=== PATIENT | female | born 1970 | race Caucasian/White ===

== ENCOUNTER 2023-10-23 08:35 | Outpatient (CLI) | payer OTHER ==
[2023-10-23 09:29] LABS: PH,URINE 5.5 (5.0-8.0); URINE APPEARANCE Clear; URINE BILIRRUBIN Negative (NEGATIVE); URINE BLOOD Negative; URINE COLOR Dark Yellow; URINE GLUCOSE Negative (NEGATIVE); URINE KETONE Trace (NEGATIVE); URINE LEUKOCYTE Negative; URINE NITRATE Negative; URINE PROTEIN Negative (NEGATIVE)
[2023-10-23 09:34] LABS: URINE BACTERIA 13.8 uL (0.0-1933); URINE EPITHELIAL CELLS 12.9 uL (0.0-38.8); URINE RBC 21.3 uL (0.0-20.8); URINE WBC 9.1 uL (0.0-23.2)
[2023-10-23 09:42] LABS: HEMATOCRIT 41.4 % (36.0-45.00); HEMOGLOBIN 14.2 g/dL (12.0-15.00); MEAN CORPUSCULAR HEMOGLOBIN 31.8 pg (27.00-32.0); MEAN CORPUSCULAR HGB CONC 34.2 g/dl (32.0-36.0); PLATELET COUNT 177 K/uL (150-450); RED BLOOD COUNT 4.46 M/uL (4.00-6.00); RED CELL DISTRIBUTION WIDTH 13.4 % (11.5-14.5)
[2023-10-23 10:04] LABS: INR 1.1; PARTIAL THROMBOPLASTIN TIME 28.8 SECONDS (22.0-34.0); PROTHROMBIN TIME 11.9 SECONDS (9.0-11.5)
[2023-10-23 10:13] LABS: URINE CAST 0.15 uL (0.0-1.40)
[2023-10-23 10:29] LABS: ALBUMIN 3.5 gm/dL (3.4-5.0); BILIRUBIN TOTAL 0.76 mg/dL (0.3-1.2); CHOL HDL RATIO 4.1 (0-5.0); CREATININE SERUM 0.58 mg/dL (0.55-1.02); GFR 108.33; POTASSIUM 3.57 mEq/L (3.5-5.1); T4 FREE 1.19 NG/ML (0.76-1.46); TOTAL PROTEIN 7.5 gm/dL (6.4-8.2); TSH 1.58 uIU/mL (0.358-3.74)
[2023-10-24 05:05] LABS: hav igm Negative (Negative); hcv Non Reactive (Non Reactive); hep b c Negative (Negative); hep b s ag Negative (Negative)
[2023-10-24 09:08] LABS: IMMUNOGLOBULIN A 384 mg/dL (87-352)
[2023-10-24 13:07] LABS: sjogrens ssa < 0.2 AI (0.0-0.9); sjogrens ssb < 0.2 AI (0.0-0.9)
[2023-10-24 15:11] LABS: TISSUE TRANSGLUTAMINASE IGA < 2 U/mL (0-3)
[2023-10-25 15:07] LABS: GASTRIN 12 pg/mL (0-115)
== END 2023-10-23 08:47 | disposition home or self-care (01) ==
LOC: LAB 08:35
PROVIDERS: ATTEND Internal Medicine Gastroenterology
DX: R12 Heartburn (principal); K30 Functional dyspepsia; R14.0 Abdominal distension (gaseous); R14.3 Flatulence; R68.2 Dry mouth, unspecified; Z80.0 Family history of malignant neoplasm of digestive organs

== ENCOUNTER → 2023-10-24 10:44 | Outpatient (CLI) | payer OTHER | END | disposition home or self-care (01) | LOC: SONOGRAMA 10:44 | PROVIDERS: ATTEND Internal Medicine Gastroenterology | DX: R12 Heartburn (principal); K30 Functional dyspepsia; R14.0 Abdominal distension (gaseous); R14.3 Flatulence; R68.2 Dry mouth, unspecified; Z80.0 Family history of malignant neoplasm of digestive organs ==

== ENCOUNTER 2023-12-02 09:56 | Outpatient (CLI) | payer OTHER ==
[2023-12-02 11:03] LABS: PH,URINE 6.5 (5.0-8.0); URINE APPEARANCE Clear; URINE BACTERIA 16.3 uL (0.0-1933); URINE BILIRRUBIN Negative (NEGATIVE); URINE BLOOD Negative; URINE COLOR Yellow; URINE EPITHELIAL CELLS 8.4 uL (0.0-38.8); URINE GLUCOSE Negative (NEGATIVE); URINE KETONE Negative (NEGATIVE); URINE LEUKOCYTE Small; URINE NITRATE Negative; URINE PROTEIN Negative (NEGATIVE); URINE RBC 22.9 uL (0.0-20.8); URINE WBC 21.4 uL (0.0-23.2)
[2023-12-02 11:16] LABS: HEMATOCRIT 44.1 % (36.0-45.00); MEAN CELL VOLUME 90.6 fL (80.00-100.00); MEAN CORPUSCULAR HEMOGLOBIN 30.7 pg (27.00-32.0); MEAN CORPUSCULAR HGB CONC 33.9 g/dl (32.0-36.0); PLATELET COUNT 145 K/uL (150-450); RED BLOOD COUNT 4.87 M/uL (4.00-6.00); RED CELL DISTRIBUTION WIDTH 12.2 % (11.5-14.5)
[2023-12-02 11:29] LABS: ERYTHROCYTE SEDIMENTATION RATE 36 mm/hr
[2023-12-02 11:44] LABS: INR 1.06; PROTHROMBIN TIME 11.5 SECONDS (9.0-11.5)
[2023-12-02 11:52] LABS: ALBUMIN 3.6 gm/dL (3.4-5.0); BILIRUBIN TOTAL 0.8 mg/dL (0.3-1.2); CALCIUM 9.4 mg/dL (8.5-10.1); CREATININE SERUM 0.61 mg/dL (0.55-1.02); GFR 102.21; GLOBULINA 3.8 G/DL (2.4-3.5); POTASSIUM 3.9 mEq/L (3.5-5.1); TOTAL PROTEIN 7.4 gm/dL (6.4-8.2)
[2023-12-02 11:57] LABS: C-REACTIVE PROTEIN 0.82 MG/DL (0.00-0.29)
[2023-12-04 13:06] LABS: COMPLEMENT C3 133 mg/dL (82-167); COMPLEMENT C4 17 mg/dL (12-38)
[2023-12-04 15:10] LABS: ANTI CARDIO IGA < 9 APL U/mL (0-11); ANTI CARDIO IGG < 9 GPL U/mL (0-14); ANTI CARDIO IGM 27 MPL U/mL (0-12); DNA AB DOUBLE STRABDED 1 IU/mL (0-9)
[2023-12-06 10:47] LABS: beta 2 gly iga < 9 (0-25); beta 2 gly igg < 9 (0-20); beta 2 gly igm < 9 (0-32); dRVVT 45.9 sec (0.0-47.0); interp Comment: (.)
== END 2023-12-02 09:57 | disposition home or self-care (01) ==
LOC: LAB 09:56
PROVIDERS: ATTEND Internal Medicine Rheumatology
DX: E55.9 Vitamin D deficiency, unspecified (principal); M32.9 Systemic lupus erythematosus, unspecified; D68.61 Antiphospholipid syndrome

== ENCOUNTER → 2023-12-29 | Emergency (ER) | payer OTHER ==
[~2023-12-29] VITALS: Ht 182.9 cm; Wt 113.4 kg
== END | disposition left against medical advice (07) ==
LOC: ER 12:03
DX: Z53.21 Procedure and treatment not carried out due to patient leaving prior to being seen by health care provider (principal)

== ENCOUNTER → 2024-01-02 10:48 | Outpatient (CLI) | payer OTHER ==
[~2024-01-02 10:48] MED LIST: PLAQUENIL
[2024-01-02 12:15] LABS: URINE APPEARANCE Clear; URINE BILIRRUBIN Negative (NEGATIVE); URINE BLOOD Negative; URINE COLOR Yellow; URINE GLUCOSE Negative (NEGATIVE); URINE KETONE Negative (NEGATIVE); URINE LEUKOCYTE Trace; URINE NITRATE Negative; URINE PROTEIN Negative (NEGATIVE); URINE UROBILINOGEN 0.2 E.U./dl
[2024-01-02 12:31] LABS: HEMOGLOBIN 15.6 g/dL (12.0-15.00); MEAN CELL VOLUME 88.9 fL (80.00-100.00); MEAN CORPUSCULAR HEMOGLOBIN 30.7 pg (27.00-32.0); MEAN CORPUSCULAR HGB CONC 34.6 g/dl (32.0-36.0); PLATELET COUNT 166 K/uL (150-450); RED BLOOD COUNT 5.06 M/uL (4.00-6.00); RED CELL DISTRIBUTION WIDTH 12.9 % (11.5-14.5)
[2024-01-02 12:33] LABS: URINE BACTERIA 26.4 uL (0.0-1933); URINE EPITHELIAL CELLS 5.8 uL (0.0-38.8); URINE RBC 14.8 uL (0.0-20.8); URINE WBC 16.2 uL (0.0-23.2)
[2024-01-02 13:11] LABS: URINE CAST 0.45 uL (0.0-1.40)
[2024-01-02 13:40] LABS: ALBUMIN 3.7 gm/dL (3.4-5.0); BILIRUBIN TOTAL 0.66 mg/dL (0.3-1.2); BILIRUBIN,CONJUGATED 0.18 mg/dL (0.0-0.2); BILIRUBIN,UNCONJUGATED 0.48 mg/dL (0.0-0.6); CALCIUM 9.1 mg/dL (8.5-10.1); CREATININE SERUM 0.65 mg/dL (0.55-1.02); GFR 94.99; GLOBULINA 3.7 G/DL (2.4-3.5); POTASSIUM 3.77 mEq/L (3.5-5.1); TOTAL PROTEIN 7.4 gm/dL (6.4-8.2)
[2024-01-02 13:48] LABS: % SATURACION 36.4 % (15-50); FERRITIN 46.7 NG/ML (8-252); T4 FREE 1.28 NG/ML (0.76-1.46)
[2024-01-02 14:42] LABS: TSH 1.01 uIU/mL (0.358-3.74)
[2024-01-06 08:59] LABS: ALPHA 1 ANTITRYPSIN 150 mg/dL (101-187)
[2024-01-06 14:09] LABS: ANGIOTENSIN CONVERTING ENZYME 74 U/L (14-82)
[2024-01-13 09:48] LABS: a:g ratio 1.1 (0.7-1.7); alpha 1 g 0.2 g/dL (0.0-0.4); alpha 2 0.7 g/dL (0.4-1.0); gamma g 1.5 g/dL (0.4-1.8); globulin t 3.4 g/dL (2.2-3.9); prot total 7.3 g/dL (6.0-8.5)
== END | disposition home or self-care (01) ==
LOC: LAB 10:48
PROVIDERS: ATTEND Internal Medicine Gastroenterology
DX: K57.30 Diverticulosis of large intestine without perforation or abscess without bleeding (principal); E66.01 Morbid (severe) obesity due to excess calories; R14.3 Flatulence; R74.01 Elevation of levels of liver transaminase levels

== ENCOUNTER 2024-01-19 12:27 | Emergency (ER) | payer OTHER ==
[~2024-01-19] VITALS: Ht 172.7 cm; Wt 117.9 kg
[2024-01-19] MEDS ORDERED: PLAQUENIL (13:09)
[2024-01-19] MEDS ORDERED: KETOROLAC TROMETHAMINE 30 MG VIAL IV ONE (13:30)
[2024-01-19 14:15] LABS: HEMATOCRIT 41.6 % (36.0-45.00); HEMOGLOBIN 14.3 g/dL (12.0-15.00); MEAN CELL VOLUME 88.5 fL (80.00-100.00); MEAN CORPUSCULAR HEMOGLOBIN 30.4 pg (27.00-32.0); MEAN CORPUSCULAR HGB CONC 34.3 g/dl (32.0-36.0); PLATELET COUNT 151 K/uL (150-450); RED CELL DISTRIBUTION WIDTH 13.6 % (11.5-14.5)
[2024-01-19 14:34] LABS: ALBUMIN 3.4 gm/dL (3.4-5.0); BILIRUBIN TOTAL 0.67 mg/dL (0.3-1.2); CALCIUM 8.9 mg/dL (8.5-10.1); CREATININE SERUM 0.97 mg/dL (0.55-1.02); GFR 59.84; GLOBULINA 3.8 G/DL (2.4-3.5); POTASSIUM 3.51 mEq/L (3.5-5.1); TOTAL PROTEIN 7.2 gm/dL (6.4-8.2)
[2024-01-19 17:00] LABS: URINE APPEARANCE Clear; URINE BILIRRUBIN Negative (NEGATIVE); URINE BLOOD Large; URINE COLOR Yellow; URINE GLUCOSE Negative (NEGATIVE); URINE KETONE Trace (NEGATIVE); URINE LEUKOCYTE Moderate; URINE NITRATE Negative; URINE PROTEIN Trace (NEGATIVE); URINE UROBILINOGEN 0.2 E.U./dl
[2024-01-19 17:03] LABS: URINE BACTERIA 130.9 uL (0.0-1933); URINE EPITHELIAL CELLS 9.4 uL (0.0-38.8); URINE WBC 114.1 uL (0.0-23.2)
[2024-01-19 17:09] LABS: URINE CAST 0.14 uL (0.0-1.40)
[2024-01-19] MEDS ORDERED: TAMSULOSIN HCL 0.4 MG CAP PO ONE (19:15)
[2024-01-19] MEDS ORDERED: KETOROLAC TROMETHAMINE 60 MG VIAL IM ONE (19:30)
== END 2024-01-19 19:05 | disposition home or self-care (01) ==
LOC: ER 12:29
PROVIDERS: General Practice
DX: R10.32 Left lower quadrant pain (principal); Z88.2 Allergy status to sulfonamides; K57.30 Diverticulosis of large intestine without perforation or abscess without bleeding; N20.1 Calculus of ureter; K70.30 Alcoholic cirrhosis of liver without ascites

== ENCOUNTER 2024-04-11 17:21 | Emergency (ER) | payer OTHER ==
[~2024-04-11] VITALS: Ht 172.7 cm; Wt 117.9 kg
[2024-04-11] MEDS ORDERED: PREDNISONE10 M2 PO (17:40)
[2024-04-11] MEDS ORDERED: KETOROLAC TROMETHAMINE 60 MG VIAL IM STA (19:03)
[2024-04-11] MEDS ORDERED: KETOROLAC TROMETHAMINE 60 MG VIAL IM ONE (20:00)
== END 2024-04-11 20:22 | disposition home or self-care (01) ==
LOC: ER 17:23
DX: M54.50 Low back pain, unspecified (principal); M32.8 Other forms of systemic lupus erythematosus; Z88.2 Allergy status to sulfonamides
CPT/HCPCS: 72070; 72100; 96372; 99283; J1885